=== PATIENT | male | born 1980 | race Caucasian/White ===

== ENCOUNTER 2020-05-27 22:53 | Emergency (ER) | payer BC ==
[2020-05-27] MEDS ORDERED: Sodium Chloride 0.9% 1,000 ML IV SCH (23:45)
[2020-05-27] MEDS ORDERED: Ondansetron 4 MG/2 ML SDV IVPUSH ONE (23:47)
[2020-05-27] MEDS ORDERED: HYDROmorphone 1 MG/ML Syringe IVPUSH STA (23:47)
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
[2020-05-28] MEDS ORDERED: HYDROmorphone 1 MG/ML Syringe IVPUSH ONE (02:05)
[2020-05-28] MEDS ORDERED: HYDROmorphone 1 MG/ML Syringe ONE (02:11)
[2020-05-28] MEDS ORDERED: Tamsulosin 0.4 MG Cap.ER PO ONE (02:21)
[2020-05-28] MEDS ORDERED: Tamsulosin 0.4 MG Cap.ER ONE (02:33)
--- NOTE | 2020-05-28 07:13 | CT ---
CT abdomen and pelvis Technique: Multiple axial sections were obtained from above the dome of the diaphragm inferiorly through the pubic symphysis. Intravenous and oral contrast was utilized. Delayed images were also obtained through the abdomen and pelvis. Reconstructed coronal and sagittal images were also obtained. Findings: Dilated right ureter is seen which is caused by a distal right ureteral obstructing stone measuring about 2 mm which is located within the distal right ureter at the UVJ. This also causes inflammatory change around the right kidney as well as swelling of the right kidney. Minimal stone is noted within the mid right kidney measuring less than 2 mm. Visualized lung bases show nothing acute. Liver and spleen show no focal abnormality. Adrenal glands show no nodule. Gallbladder contains no calcified gallstones. Pancreas is normal. Abdominal aorta shows no aneurysm. No retroperitoneal adenopathy or mesenteric abnormalities are appreciated. Appendix is seen which is normal. No pelvic mass or adenopathy is appreciated. Delayed images show contrast within the left ureter and bladder. No contrast is seen within the dilated right ureter. Bone window settings were reviewed which show mild scattered degenerative change within the spine. There is evidence of orthopedic hardware within the right hip. Impression: 1. Dilated right ureter with swelling of the right kidney and surrounding inflammatory change. These findings are caused by an obstructing stone within the distal right ureter measuring approximately 2 mm which is located close to the UVJ. 2. Small less than 2 mm stone is noted within the mid right kidney. 3. No other acute abnormality is appreciated. Diagnostic code #3 I agree with preliminary report issued by Jason finalized on 05/28/20, 3:11 AM RN ORTHO
== END 2020-05-28 03:00 | disposition home or self-care (01) ==
LOC: MERGE 22:53 → JD.ED 22:53
DX: N13.2 Hydronephrosis with renal and ureteral calculous obstruction (principal); E66.9 Obesity, unspecified; Z68.32 Body mass index [BMI] 32.0-32.9, adult; Z79.899 Other long term (current) drug therapy
CPT/HCPCS: 36415; 74177; 80053; 81001; 83690; 83735; 85007; 85027; 96374; 96375; 96376; 99284; A9270; J1170; J2405; J7030

== ENCOUNTER 2025-02-22 09:35 | Day surgery (SDC) | payer BC ==
[~2025-02-22 09:35] MED LIST: EPINEPHrine 1 MG/ML SDV ONE; Sodium Chloride 0.9% 10 ML Syringe FLUSH PRN; Sodium Chloride 0.9% 10 ML Syringe FLUSH SCH; propofoL 500 MG/50 ML 50 ML ONE
[2025-02-22] MEDS: Lactated Ringers 1,000 ML IV SCH (10:00)
[2025-02-22] MEDS ORDERED: propofoL 500 MG/50 ML 50 ML ONE (10:41)
[2025-02-22] MEDS ORDERED: fentaNYL 250 MCG/5 ML SDV ONE (10:43)
[2025-02-22] MEDS ORDERED: Dexamethasone 4 MG/ML 5 ML MDV ONE (10:45)
[2025-02-22] MEDS ORDERED: Ondansetron 4 MG/2 ML SDV ONE (10:45)
[2025-02-22] MEDS ORDERED: dexmedeTOMIDine HCl 200 MCG/2 ML SDV ONE (10:47)
[2025-02-22] MEDS ORDERED: Ketorolac 30 MG/ML SDV ONE (10:47)
[2025-02-22] MEDS ORDERED: Lactated Ringers 1,000 ML ONE (12:08)
[2025-02-22] MEDS ORDERED: Ondansetron 4 MG/2 ML SDV IVPUSH PRN (12:47)
[2025-02-22] MEDS ORDERED: fentaNYL 100 MCG/2 ML SDV IVPUSH PRN (12:47)
[2025-02-22] MEDS: Acetaminophen/HYDROcodone 325-5 MG Tab PO ONE (15:30)
== END 2025-02-22 15:30 | disposition home or self-care (01) ==
LOC: JD.SDS 09:35
PROVIDERS: ATTEND Orthopaedic Surgery
DX: S83.282A Other tear of lateral meniscus, current injury, left knee, initial encounter (principal); S83.512A Sprain of anterior cruciate ligament of left knee, initial encounter; M17.12 Unilateral primary osteoarthritis, left knee; F41.8 Other specified anxiety disorders; K21.9 Gastro-esophageal reflux disease without esophagitis; I10 Essential (primary) hypertension; E78.1 Pure hyperglyceridemia; E78.5 Hyperlipidemia, unspecified; Z88.8 Allergy status to other drugs, medicaments and biological substances; Z79.899 Other long term (current) drug therapy; X58.XXXA Exposure to other specified factors, initial encounter
CPT/HCPCS: 29881; A9270; J0169; J0665; J0690; J1100; J1885; J2405; J2704; J3010; J7120; J1171